=== PATIENT | male | born 2000 | race Two or more races ===

== ENCOUNTER → 2020-02-02 | Emergency (ER) | payer MEDICAID, OTHER ==
[~2020-02-02] VITALS: Ht 185.4 cm; Wt 90.7 kg
[~2020-02-02] MED LIST: EPINEPHrine HCL 1 MG/1 ML AMP SC ONE; PANTOPRAZOLE 40 MG/10 ML VIAL INJ IV ONE; SODIUM CHLORIDE 0.9% 2,000 ML IV ONE; diphenhdrAMINE HCL 50 MG/1 ML VL IV ONE; diphenhdrAMINE HCL 50 MG/1 ML VL ONE; methylPREDNISolone SOD SUCC 125 MG/2 ML VL IV ONE; methylPREDNISolone SOD SUCC 125 MG/2 ML VL ONE
[2020-02-02 19:02] LABS: Basophils # (auto) 0 10 ^3/uL (0-0.2); Basophils % (auto) 0.1 % (0.0-2.0); Eosinophils # (auto) 0.1 10 ^3/uL (0-0.8); Eosinophils % (auto) 1.3 % (0.0-7.0); Lymphocytes # (auto) 2.5 10 ^3/uL (0.4-5.4); Lymphocytes % (auto) 21.4 % (10.0-50.0); Mean Corpuscular Hemoglobin 29.6 pg (28.0-32.0); Mean Corpuscular Hgb Conc. 33.4 g/dL (32.0-36.0); Mean Corpuscular Volume 88.8 fL (80.0-100.0); Monocytes # (auto) 0.5 10 ^3/uL (0-1.3); Monocytes % (auto) 4.3 % (0.0-12.0); Neutrophils # (auto) 8.4 10 ^3/uL (1.6-8.6); Neutrophils % (auto) 72.9 % (37.0-80.0); Nucleated Red Blood Cells % 0.1 %; Platelet Count (auto) 262 10^3/uL (140-450); Red Blood Cells 5.07 10^6/uL (4.5-5.90); Red Cell Distribution Width 12.3 % (11.8-14.3); White Blood Cell 11.5 10^3/uL (4.4-10.8)
[2020-02-02 19:17] LABS: Albumin 3.3 g/dL (3.4-5.0); BUN/Creatinine Ratio 12.1; Calcium 7.5 mg/dL (8.5-10.1); Potassium 3.8 mmol/L (3.5-5.1)
[2020-02-02 19:19] LABS: Bilirubin, Total 0.6 mg/dL (0.2-1.0); Total Protein 5.9 g/dL (6.4-8.2)
[2020-02-02 20:15] VITALS: BP 129/69
== END | disposition home or self-care (01) ==
LOC: ER 17:58
DX: T78.2XXA Anaphylactic shock, unspecified, initial encounter (principal); T78.40XA Allergy, unspecified, initial encounter; X58.XXXA Exposure to other specified factors, initial encounter
CPT/HCPCS: 36415; 71045; 80053; 85025; 96372; 96374; 96375; 99284; C9113; J1200; J2930; J7030